=== PATIENT | female | born 1965 | race Two or more races ===

== ENCOUNTER 2017-05-09 11:21 | Outpatient (CLI) | payer OTHER | END 2017-05-09 11:26 | disposition home or self-care (01) | LOC: RAD 501 11:21 | DX: M25.572 Pain in left ankle and joints of left foot (principal) ==

== ENCOUNTER 2017-05-10 07:09 | Outpatient (CLI) | payer OTHER | END 2017-05-10 07:37 | disposition home or self-care (01) | LOC: LAB 07:09 | DX: D64.89 Other specified anemias (principal); E88.89 Other specified metabolic disorders; D68.8 Other specified coagulation defects; N39.0 Urinary tract infection, site not specified; R82.79 Other abnormal findings on microbiological examination of urine ==

== ENCOUNTER 2017-05-10 07:12 | Outpatient (CLI) | payer OTHER | END 2017-05-10 07:23 | disposition home or self-care (01) | LOC: RAD 07:12 | DX: Z76.89 Persons encountering health services in other specified circumstances (principal); M79.671 Pain in right foot ==

== ENCOUNTER 2017-05-16 06:53 | Inpatient (IN) | payer OTHER ==
[~2017-05-16] VITALS: Ht 170.2 cm; Wt 60.8 kg
[2017-05-16] MEDS ORDERED: LANTUS SOL100 UNIT/1 (07:29)
[2017-05-16] MEDS ORDERED: NOVOLIN 70100 UNIT/1 (07:29)
[2017-05-16] MEDS ORDERED: NEURONTIN300 MG (07:29)
[2017-05-20] MEDS ORDERED: NITROFURANTOIN25 MG PO (09:50)
[2017-05-20] MEDS ORDERED: GABAPENTIN800 MG PO (09:50)
[2017-05-20] MEDS ORDERED: Lantus 1000 UNITS/10 SUBCUTANEO (09:50)
== END 2017-05-20 12:10 | disposition home or self-care (01) | DRG 690 ==
LOC: ER 06:53 → SEC-K 16:43 → MEDI 16:43
PROC: 30233N1 Transfusion of Nonautologous Red Blood Cells into Peripheral Vein, Percutaneous Approach (ICD-10-PCS; principal; 2017-05-16)
PROC: BT43ZZZ Ultrasonography of Bilateral Kidneys (ICD-10-PCS; 2017-05-16)
DX: N39.0 Urinary tract infection, site not specified (principal); N17.8 Other acute kidney failure; B96.20 Unspecified Escherichia coli [E. coli] as the cause of diseases classified elsewhere; Z16.12 Extended spectrum beta lactamase (ESBL) resistance; E11.65 Type 2 diabetes mellitus with hyperglycemia; D64.89 Other specified anemias

== ENCOUNTER 2017-06-18 11:29 | Outpatient (CLI) | payer OTHER ==
[~2017-06-18 11:29] MED LIST: GABAPENTIN800 MG PO; LANTUS SOL100 UNIT/1; Lantus 1000 UNITS/10 SUBCUTANEO; NEURONTIN300 MG; NITROFURANTOIN25 MG PO; NOVOLIN 70100 UNIT/1
== END 2017-06-18 17:00 | disposition home or self-care (01) ==
LOC: TOM 11:29
DX: S92.24 Fracture of medial cuneiform (principal)

== ENCOUNTER 2017-10-22 15:23 | Outpatient (CLI) | payer OTHER | END 2017-10-22 16:06 | disposition home or self-care (01) | LOC: RAD 501 15:23 | DX: Z76.89 Persons encountering health services in other specified circumstances (principal); M25.572 Pain in left ankle and joints of left foot; M79.672 Pain in left foot; M79.671 Pain in right foot ==